=== PATIENT | female | born 1980 | race Caucasian/White ===

== ENCOUNTER → 2020-07-10 | Outpatient (CLI) | payer OTHER | LOC: LAB 14:10 | PROVIDERS: ATTEND Orthopaedic Surgery Foot and Ankle Surgery | DX: Z01.812 Encounter for preprocedural laboratory examination (principal); Z20.822 Contact with and (suspected) exposure to COVID-19 ==

== ENCOUNTER 2020-07-14 06:20 | Inpatient (IN) | payer OTHER ==
[~2020-07-14] VITALS: Ht 177.8 cm; Wt 76.7 kg
[~2020-07-14 06:20] MED LIST: BIOTIN5 MG PO; BUMETANIDE 1 MG1 M1 PO; DOXYCYCLINE 10100 MG PO; FAMCICLOVIR250 MG PO; FENTANYL1 EAC3 TRANSDERM; GABAPENTIN600 M1 PO; HUMALOG100 UNIT/1 SUBQ; HYDROCODON-ACE1 EAC5 PO; TOPAMAX100 MG PO; ZANAFLEX4 M1 PO
[2020-07-14 07:30] VITALS: BP 148/85
[2020-07-14 13:31] VITALS: BP 133/71
[2020-07-14 13:45] VITALS: BP 117/69
[2020-07-14 14:00] VITALS: BP 110/70
--- NOTE | 2020-07-14 15:33 | NUR ---
Pt transferred to unit from PACU. A&ox4. Pain controlled with prn pain meds. Dressing c/d/i. J.P. drain in place. Admission completed. Hospitalist doctor and ID consulted. Pt has insulin pump and fentanyl patch. IV antibiotics infusing. Call light within reach. Pt family at bedside. Will continue to monitor.
[2020-07-14 16:00] VITALS: BP 116/71
[2020-07-14 19:19] LABS: ABSOLUTE NEUTROPHILS 7.4 thou/uL (1.4-8.2); BASOPHILS 0.6 % (0.0-2.0); HEMATOCRIT 27.5 % (37.0-47.0); HEMOGLOBIN 9.3 gm/dL (12.0-15.0); LYMPHOCYTES 14.6 % (24.0-44.0); MCH 31.1 pg (26.0-34.0); MCHC 33.7 g/dL (28.0-37.0); MCV 92.1 fL (80.0-100.0); MONOCYTES 2.8 % (1.0-8.0); PLATELET COUNT 261 thou/uL (150-400); RBC 2.99 mil/uL (4.20-5.00); RDW 13.7 % (10.5-14.5)
[2020-07-14 19:32] LABS: ALBUMIN 2.4 g/dL (3.4-5.0); CALCIUM 8.3 mg/dL (8.5-10.1); CREATININE 1.6 mg/dL (0.6-1.0); TOTAL BILIRUBIN 0.1 mg/dL (0.2-1.0); TOTAL PROTEIN 5.9 g/dL (6.4-8.2)
[2020-07-14 19:35] LABS: POTASSIUM 6.5 mmol/L (3.5-5.1)
[2020-07-14 19:57] LABS: FOLIC ACID 14.4 ng/mL (8.6-58.9)
[2020-07-15 03:06] LABS: GLYCOHEMOGLOBIN (HGB A1C) 9.1 % (4.8-5.6)
--- NOTE | 2020-07-15 04:45 | NUR ---
RECIEVED CARE OF THIS PATIENT AT 1900. PATIENT ALERT AND ORIENTED X4. UP TO BSC WITH SBA. DRESSING ON R FOOT D/I. HAS LBKA WITH A PROTHESIS. HAS INSULIN PUMP. ACCUCHECK WAS 243. L CHEST PORT ACCESSED, DRAWS AND FLUSHES GOOD. HAS CRITICAL POTASSIUM OF 6.5. MORTGAGE LOAN OFFICER WAS NOTIFIED AND ORDERS WERE PUT INTO COMPUTER AND FOLLOWED. C/O PAIN, MED GIVEN. SLEPT LITTLE THIS SHIFT.
--- NOTE | 2020-07-15 05:04 | HC ---
[facility] [place] [address] CONSULTATION Name: ZAC AVERY Room #: 439-P ADM IN M.R.#: [id number] Admission: 07/14/20 Attend Phys: Salomon Monge MD Discharge: Date of : 82 Report #: [id number] THIS REPORT FOR: cc: FAM - No family physician/PCP FAM - No family physician/PCP Allan Royal MD ~ DATE OF SERVICE: 07/14/2020 INFECTIOUS DISEASE CONSULTATION ATTENDING PHYSICIAN: Dr. Monge. REASON FOR EVALUATION: Osteomyelitis involving the right second toe as well as the medial sesamoid. She is post-surgical amputation ____. HISTORY OF PRESENT ILLNESS: Chart reviewed, the patient examined. This is a 40-year-old woman with diabetes mellitus type 1 diagnosed at age 7, who has significant sequelae including retinopathy, does have peripheral neuropathy, has had chronic ulcerations involving the plantar aspect of the first MTP as well as the dorsal aspect of the second toes. Denies any antecedent injury. She notes had an MRI that suggested likely chronic osteomyelitis. As a result, she was admitted and underwent operative approach with right second toe amputation, right foot medial sesamoid excision. She is seen postop. Denies significant pain at this point. She does not experience dyspnea. She does not recall any recent fevers. She has not been systemically ill. She has had some marginal p.o. intake. She notes she has gained weight as well. 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 She empirically got cefazolin. 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 ALLERGIES: As described above. CURRENT MEDICATIONS: Include morphine sulfate, oxycodone. PAST MEDICAL HISTORY: As noted above, diabetes mellitus type 1, there have been sequelae. Does have stage 3 renal disease, bilateral retinopathy, peripheral neuropathy, concerned about any vasculopathy, previous left below knee amputation, gastroparesis, history of Tayo Merrick syndrome. SOCIAL HISTORY: Does smoke cigarettes. No ethanol or illicit drug use. FAMILY HISTORY: Noncontributory. REVIEW OF SYSTEMS: Otherwise, unremarkable. [facility] [address] [place] [address] CONSULTATION Name: ZAC AVERY Room #: 439-P [facility] IN .R.#: [id number] Admission: 07/14/20 Attend Phys: Salomon Monge MD Discharge: Date of : 82 Report #: [id number] PHYSICAL EXAMINATION: GENERAL: She is alert, cooperative. She does not look evidently toxic, although is somewhat chronically ill appearing. She is not encephalopathic. VITAL SIGNS: Temperature 98.7, pulse 97, respirations 16, blood pressure 148/85. SKIN: Warm, dry, no rashes. HEENT: Unremarkable other than poor dentition. NECK: Supple. LUNGS: Clear to auscultation bilaterally. HEART: Regular, no appreciate murmur. ABDOMEN: Soft, nontender, nondistended. EXTREMITIES: Distal right lower extremity has a surgical dressing in place with drainage. ASSESSMENT: Chronic second toe osteomyelitis, status post amputation. We will continue perioperative antibiotics. Based on her description, the ulceration may well have involved the PIP or MIP joint and therefore may have been cured with ____ surgery. <ELECTRONICALLY SIGNED> By: Allan Royal MD 07/15/20 0504 1304 1658 Allan Royal MD /nt
[2020-07-15 07:07] LABS: ABSOLUTE NEUTROPHILS 7.8 thou/uL (1.4-8.2); BASOPHILS 0.7 % (0.0-2.0); EOSINOPHILS 0.3 % (0.0-3.0); HEMATOCRIT 24.4 % (37.0-47.0); LYMPHOCYTES 24.3 % (24.0-44.0); MCH 30.7 pg (26.0-34.0); MCHC 32.9 g/dL (28.0-37.0); MCV 93.2 fL (80.0-100.0); PLATELET COUNT 249 thou/uL (150-400); POLYS 68.7 % (36.0-66.0); RBC 2.62 mil/uL (4.20-5.00); RDW 13.7 % (10.5-14.5); WBC 11.3 thou/uL (4.0-11.0)
[2020-07-15 07:21] LABS: CREATININE 1.7 mg/dL (0.6-1.0); MAGNESIUM 1.8 mg/dL (1.8-2.4)
[2020-07-15 08:46] VITALS: BP 105/56
[2020-07-15 17:35] VITALS: BP 122/73
--- NOTE | 2020-07-15 19:38 | NUR ---
Patient non weightbearing on right foot. Up independently in the room. Selfmonitors insulin with insulin pump. No drainage in the RACHID drain. Dr. Monge will remove drain tomorrow. Pain managed well with pain medication on board. Contiunue fluids until tomorrow per Dr. Monge.
[2020-07-15 20:46] VITALS: BP 124/76
--- NOTE | 2020-07-16 02:37 | NUR ---
ASSESSED AT START OF SHIFT. PT A&OX4 DENIES N/V. C/O PAIN IN RT FOOT. OXYCODONE GIVEN FOR PAIN. PT UP TO BSC. HAD 2 HUGE BM THIS SHIFT. LFT FOOT AKA. BSG CHECKED. CALL LIGHT AT REACH. RT FOOT DRESSING C/D/I WITH RACHID DRAIN IN PLACE. IV INTACT AND FLUIDS INFUSING.
--- NOTE | 2020-07-16 08:23 | O ---
[facility] [place] [address] OPERATIVE REPORT Name: ZAC AVERY Room #: 439-P ADM IN M.R.#: [id number] Admission: 07/14/20 Attend Phys: Salomon Monge MD Discharge: Date of : 82 Report #: [id number] THIS REPORT FOR: cc: FAM - No family physician/PCP FAM - No family physician/PCP Salomon Monge MD ~ DATE OF SERVICE: 07/14/2020 PREOPERATIVE DIAGNOSES: 1. Right foot second toe osteomyelitis. 2. Right foot medial sesamoid osteomyelitis. POSTOPERATIVE DIAGNOSES: 1. Right foot second toe osteomyelitis. 2. Right foot medial sesamoid osteomyelitis. PROCEDURES: 1. Right foot second toe amputation. 2. Right foot medial sesamoid excision with irrigation and debridement. SURGEON: Dr. Salomon Monge. JOB PRESS FEEDER: Michelle Grimm. ANESTHESIA: General. ESTIMATED BLOOD LOSS: Minimal. DRAINS: No drains. TOURNIQUET TIME: 30 minutes. DESCRIPTION OF PROCEDURE: The patient brought to the operating room where she was placed under general anesthesia. Once under adequate general anesthesia, her right lower extremity was prepped and draped in sterile manner. The extremity was elevated, exsanguinated, tourniquet placed 300 mmHg. A fishmouth-type incision was made about the proximal phalanx of the second toe. This was dissected directly down to the bone, which was then exposed and a sagittal saw was used to transect the second toe proximal phalanx. There was no ulcer beneath the medial sesamoid as well, approximately 8 mm in diameter. This was resected utilizing an elliptical incision. Dissection was taken sharply down to the medial sesamoid, which was then exposed with a 15 blade and subsequently removed with a rongeur and a 15 blade. This wound was then irrigated copiously with normal saline as well and closed over a drain with 2-0 nylon suture. The wounds were then dressed with Xeroform, 4 x 4s, and sterile [address] [address] OPERATIVE REPORT Name: ZAC AVERY Room #: 439-P ADM IN M.R.#: [id number] Admission: 07/14/20 Attend Phys: Salomon Monge MD Discharge: Date of : 82 Report #: [id number] soft compressive dressing was placed. Tourniquet was let down at 30 minutes. Toes were pink and warm with good capillary refill. There were no complications from the procedure. The patient tolerated the procedure well and went to the recovery room without incident. <ELECTRONICALLY SIGNED> By: Salomon Monge MD 07/16/20 0823 0921 0945 Salomon Monge MD /nt
[2020-07-16 10:34] LABS: EOSINOPHILS 4.1 % (0.0-3.0); HEMATOCRIT 25.3 % (37.0-47.0); HEMOGLOBIN 8.4 gm/dL (12.0-15.0); LYMPHOCYTES 37.6 % (24.0-44.0); MCV 93.9 fL (80.0-100.0); PLATELET COUNT 226 thou/uL (150-400); POLYS 50.3 % (36.0-66.0); RDW 14.2 % (10.5-14.5)
[2020-07-16 10:47] LABS: CALCIUM 7.7 mg/dL (8.5-10.1); CREATININE 1.3 mg/dL (0.6-1.0); POTASSIUM 4.6 mmol/L (3.5-5.1); TOTAL BILIRUBIN 0.1 mg/dL (0.2-1.0)
--- NOTE | 2020-07-16 16:12 | NUR ---
ASSUMED CARE AT 0700. PT A&OX4. PT VERY PLEASANT AND COOPERATIVE. PT CURRENTLY HAS LEFT FOOT WOUND THAT WAS WRAPPED BY PHYSICIAN. IN PHYSICIAN NOTE WOUND WILL BE REDRESSED TOMORROW. PT IS ABLE TO STAND AND PIVOT HERSELF FROM BED TO BEDSIDE COMMODE. PT IS ABLE L BKA AND HAS BEEN FOR 5 YEARS. PT HAS PROSTHESIS AT BEDSIDE. PT WAS GIVEN PAIN MEDICATION PRIOR TO SHIFT CHANGE AND AT 0715 STATED HER PAIN WAS UNDER CONTROL. PT WEARS INSULIN PUMP AND HOSPITALIST IS AWARE. AT 1141 PT'S BLOOD SUGAR WAS CHECKED PRIOR TO LUNCH AND GLUCOSE WAS 64. PT GIVEN APPLE JUICE AND RECHECKED. AT 1218 PT'S GLUCOSE LEVEL HAD DROPPED TO 49. PT REMAINED A&OX4. PT WAS GIVEN D50 SEE MAR PER HYPOGLYCEMIA PROTOCOL. PT'S LUNCH ARRIVED DURING THIS TIME AND PT ATE 100% OF HER LUNCH. PT RECHECKED AT 1306 AND GLUCOSE LEVEL 152. DURING THIS TIME PT WAS INSTRUCTED TO NOTIFY RN IF SHE STARTED TO FEEL ANY S/S OF HYPOGLYCEMIA. PT CONTINUES TO DENY ANY SYMPTOMS AT THIS TIME. PT DOES ALSO WEAR GLUCOMETER AND IS ABLE TO CONSTANTLY HAVE A READING OF HER OWN TO CHECK. PT STATES SHE WILL INFORM NURSING IF SHE NOTICES A DROP IN HER GLUCOSE PRIOR TO NEXT CHECK BY STAFF. WILL CONTINUE TO CLOSELY TO MONITOR PT. PT GIVEN PRN PAIN MEDICATION ORDERED. PAIN UNDER CONTROL STATED BY PATIENT AT THIS TIME.
[2020-07-16 17:19] VITALS: BP 120/74
[2020-07-16 19:48] VITALS: BP 131/83
--- NOTE | 2020-07-16 21:22 | NUR ---
ASSESSED AT START OF SHIFT 1900. PT RATES PAIN 7/10 MANAGED BY PO PAIN MED. IV INTACT AND ABX INFUSING. PT UP TO THE BSC. PT HAS INSULIN PERSONAL INSULIN PUMP. BLOOD SUGAR CHECKED 198. RT FOOT DRESSING C/D/I. PT DENIES N/V. CALL LIGHT AT REACH AND WILL CONT TO MONITOR.
[2020-07-17 08:00] VITALS: BP 135/79
[2020-07-17] MEDS ORDERED: ANCEF 1GM1 GM/50 M1 IVPB (11:59)
[2020-07-17 13:06] VITALS: BP 135/79
--- NOTE | 2020-07-17 13:13 | NUR ---
ASSESSMENT: CM REVIEWED CHART AND SPOKE WITH PATIENT. PT IS S/P AMPUTATION OF RIGHT SECOND TOE DUE TO OSTEO. PT HAS PAST HX OF IDDM AND L BKA. PT REPORTS HAVING A WHEELCHAIR, WALKER, CANE, CRUTCHES TO ASSIST WITH AMBULATION. PT REPORTS LIVING IN A HOUSE WITH HER AND DAUGHTERS. PT REPORTS ABOUT 2 STEPS TO ENTER THE HOME THROUGH THE GARAGE AND ABOUT 16 STEPS WITH HANDRAILS TO HER BEDROOM. PT REPORTS THAT SHE HAS NO HX OF HH BUT HAS BEEN TO REHAB AT [facility] IN THE PAST. CM DISCUSSED ROLE. PT IS NEEDING IV ANBX FOR PROLONGER PERIOD. PT IS AGREEABLE WITH REFERRAL TO ANY INFUSION COMPANY. CM FAXED REFERRAL TO [facility] WHO RAN HER BENEFITS AND PT IS FULLY COVERED AND WILL HAVE NO COST FOR MEDICATION AND SUPPLIES. MYRNA AT [facility] STATING THEY SPOKE WITH PATIENT AND CAN COME DO A BEDSIDE TEACHING TODAY AT 1330. PT ALSO HAS NO PREFERENCE OF HH COMPANY. CM FAXED REFERRAL TO [facility] WHO REPORTS THEY CAN ACCEPT PATIENT AND WILL PUT HER ON THE SCHEDULE FOR TOMORROW. DIYA SPOKE WITH ANAHY AT [facility] AND NOTIFIED THAT PATIENT IS GOING HOME ON IV ANBX. AWAITING TEACHING FOR HOME IV ANBX TO BE COMPLETED AT THE BEDSIDE THEN PATIENT WILL DISCHARGE HOME WITH .
--- NOTE | 2020-07-17 14:49 | NUR ---
ASSUMED PATIENT CARE AT 0700. A/O X4. PAIN MED GIVEN NEED. SURGEN COME UP DID TOE DRESSING CHANGE. DC TO HOME WITH HOME INFUSION AND HOME HEALTH CARE.
--- NOTE | 2020-07-19 16:06 | PATH ---
[facility] [place] [address] PATHOLOGY RPT PROCEDURE Name: ZAC HEIN Room #: 439-P DIS IN M.R.#: [id number] Admission: 07/14/20 Date of : 82 Discharge: 07/17/20 Report #: [id number] Path Case #: [id number] [facility] Accession Number: [id number] . 01 Material submitted: . PART A: toe - RIGHT FOOT SECOND TOE. Modifiers: right, FOOT, second PART B: bone - SESAMOID BONE . 01 Clinical history: . AMPUTATION OF TOES PRE-OP DIAGNOSIS: OSTEOMYELITIS OF RIGHT FOOT, UNSPECIFIED TYPE . 02 Diagnosis: A. Toe, right foot second toe, amputation: - Marked acute inflammation extending into bone, consistent with acute osteomyelitis. - Margins showing viable skin, soft tissue, as well as bone. - Numerous non-necrotizing granulomata identified within bone parenchyma, see comment. . B. Bone, sesamoid bone, resection: - No diagnostic abnormalities present. (IUV:pit 07/18/2020) QTP 07/18/2020 1418 Local . 02 Comment: AFB and GMSF special stains are performed on block A1 and the results of these will be reported in an addendum to follow. (IUV:pit 07/18/2020) . 02 Addendum: . Acid fast bacillus and Gomori methenamine silver stains performed on A1 show no definitive mycobacterial or fungal elements, respectively. (IUV/db; 07/19/2020) . Professional services performed by [facility] at [facility], [address] [place], [place] [address], [place] [address]. Technical services performed by [facility] at [address] [place] [address], [address], [place] [address]. LBQ/07/19/2020 Addendum Electronically Signed by Gilda Calvillo MD, Pathologist . 02 Electronically signed: . Gilda Calvillo MD, Pathologist NPI- [id number] . 01 Gross description: . A. The specimen is received in formalin, labeled "Zac Hein, right [facility] [address] [place] [address] PATHOLOGY RPT PROCEDURE Name: ZAC HEIN Room #: 439-P DIS IN M.R.#: [id number] Admission: 07/14/20 Date of : 82 Discharge: 07/17/20 Report #: [id number] Path Case #: [id number] foot second toe". Received is an amputated digit measuring 4.0 x 1.9 x 1.8 cm in greatest dimensions. The bone margin is blunt in appearance, consistent with transection, and appears grossly unremarkable. The bone and soft tissue margins are inked black. The nail is present display in a pale moralez and grossly unremarkable appearance. Proximal to the nail on the dorsal aspect, there is a poorly circumscribed, irregular in contour and scherer-brown lesion measuring 1.4 x 1.1 cm, which is 0.8 cm closest skin margin. A full-thickness longitudinal cross-section is submitted from proximal to distal aspects in cassettes A1 and A2, following decalcification. . B. The specimen is received in formalin, labeled "Zac Melvina, sesamoid bone". The site is further designated any clinical background as "right foot". Received is a segment of bone displaying one smooth disarticulation margin, which is inked black, measuring 1.5 x 1.1 x 0.8 cm in greatest dimensions. The opposing margin is covered and overlying soft tissue. A full thickness cross-section is submitted in cassette B1, following decalcification. (CAA; 07/17/2020) QAC/QAC 07/17/2020 1111 Local . 02 Pathologist provided ICD-10: M86.171 . 02 CPT . 944070, 490038, 099283, 299267, 511893, [id number] Specimen Comment: A courtesy copy of this report has been sent to [phone], [phone] Specimen Comment: [id number] Specimen Comment: Report sent to / DR MEYER Performed at: [address] [facility], [place], [place] [id number] MD Shree Khan MD Phone: [phone] Performed at: [address] [facility] [id number] MD Gilda Calvillo MD Phone: [phone]
== END 2020-07-17 14:52 | disposition home health service (06) | DRG 616 ==
LOC: OR → TBA 06:20 → 4S 06:20 → OR 10:12 → EDSTATUS 12:54 → 4S 13:19 → OR 14:10 → PRE 14:24 → OR 15:08 → 4S 07-17 14:52
PROVIDERS: Nurse Practitioner; Specialist; ADMIT Orthopaedic Surgery Foot and Ankle Surgery; ATTEND Orthopaedic Surgery Foot and Ankle Surgery
DX: E10.69 Type 1 diabetes mellitus with other specified complication (principal); E43 Unspecified severe protein-calorie malnutrition; M86.8X7 Other osteomyelitis, ankle and foot; L51.1 Stevens-Johnson syndrome; N17.0 Acute kidney failure with tubular necrosis; E10.22 Type 1 diabetes mellitus with diabetic chronic kidney disease; E10.42 Type 1 diabetes mellitus with diabetic polyneuropathy; E10.319 Type 1 diabetes mellitus with unspecified diabetic retinopathy without macular edema; G43.909 Migraine, unspecified, not intractable, without status migrainosus; F17.200 Nicotine dependence, unspecified, uncomplicated; E87.5 Hyperkalemia; E10.43 Type 1 diabetes mellitus with diabetic autonomic (poly)neuropathy; N18.30 Chronic kidney disease, stage 3 unspecified; K31.84 Gastroparesis; Z88.1 Allergy status to other antibiotic agents; Z88.8 Allergy status to other drugs, medicaments and biological substances; Z91.09 Other allergy status, other than to drugs and biological substances; Z90.49 Acquired absence of other specified parts of digestive tract; Z98.891 History of uterine scar from previous surgery; Z68.24 Body mass index [BMI] 24.0-24.9, adult
CPT/HCPCS: 10102; 50010; 50101; 50386; 56525; 56527; 57091; 57179; 62110; 62900; 70005

== ENCOUNTER → 2020-09-07 | Outpatient (CLI) | payer OTHER ==
[~2020-09-07] MED LIST changes: +ANCEF 1GM1 GM/50 M1 IVPB
== END ==
LOC: SJCVCIMAG 07:51
PROVIDERS: ATTEND Nuclear Medicine Nuclear Cardiology
DX: R09.89 Other specified symptoms and signs involving the circulatory and respiratory systems (principal); I73.9 Peripheral vascular disease, unspecified; E11.51 Type 2 diabetes mellitus with diabetic peripheral angiopathy without gangrene; M86.8X6 Other osteomyelitis, lower leg; Z98.890 Other specified postprocedural states